=== PATIENT | female | born 1990 | race Caucasian/White ===

== ENCOUNTER 2017-10-16 08:28 | Emergency (ER) | payer MEDICAID ==
[~2017-10-16] VITALS: Ht 162.6 cm; Wt 70.0 kg
[~2017-10-16 08:28] MED LIST: FIORICET PO; IBUP-1542 PO; NITR-58 PO
[2017-10-16 08:31] VITALS: Ht 162.6 cm; Wt 70.0 kg
[2017-10-16] MEDS ORDERED: KETOROLAC 60 MG INJ IM STA (08:48)
[2017-10-16] MEDS ORDERED: PROCHLORPERAZINE 10 MG INJ IM ONE (09:00)
[2017-10-16] MEDS ORDERED: DIPHENHYDRAMINE 50 MG INJ IM ONE (09:00)
[2017-10-16] MEDS ORDERED: PROCHLORPERAZINE 10 MG TAB PO ONE (09:30)
[2017-10-16] MEDS ORDERED: ASPI1TAB31 PO (10:08)
[2017-10-16] MEDS ORDERED: PROC10TA10 PO (10:09)
--- NOTE | 2017-10-16 10:21 | ERD ---
ER Documentation Chief Complaint Chief Complaint pt bib family with c/o headache and vomiting for a few days HPI 27-year-old female with history of migraine is complaining of headache 2 days. Patient usually take Excedrin at home for migraine, states that it has not worked. Patient is several times. States that she has photophobia and phonophobia. Denies fever or chills. Denies abdominal pain. Denies neck pain. Denies vision changes. Denies weakness or numbness in the extremities. ROS All systems reviewed and are negative except as per history of present illness. Medications Home Meds Active Scripts Prochlorperazine* (Prochlorperazine*) 10 Mg Tablet, 10 MG PO Q6 Y for NAUSEA AND /OR VOMITING, #10 TAB Prov:FIDELINA FERNANDEZ QUALITY CONTROL MICROBIOLOGIST 10/16/17 Aspirin/Acetaminophen/Caffeine (Excedrin Migraine Caplet) 1 Each Tablet, 1 EACH PO Q6 Y for HEADACHE, #30 TAB Prov:FIDELINA FERNANDEZ QUALITY CONTROL MICROBIOLOGIST 10/16/17 Ibuprofen* (Motrin*) 600 Mg Tab, 600 MG PO Q6, #30 TAB Prov:CLAU MASTERS PA-C 07/12/16 Acetamin/Butalbital/Caffeine* (Fioricet*) 1 Tab Tab, 1 TAB PO Q4H Y for PAIN LEVEL 1-5, #10 TAB Prov:CLAU MASTERS PA-C 07/12/16 Nitrofurantoin Monohyd Macrocr* (Macrobid*) 100 Mg Capsr, 100 MG PO BID, #14 CAP Prov:GAY MERINO PA-C 03/11/16 Acetamin/Butalbital/Caffeine* (Fioricet*) 1 Tab Tab, 1 TAB PO Q4H Y for PAIN LEVEL 1-5, #20 TAB Prov:GAY MERINO PA-C 03/11/16 Allergies Allergies: Coded Allergies: No Known Allergy (Unverified , 10/16/17) PMhx/Soc History of Surgery: No Anesthesia Reaction: No Hx Neurological Disorder: No Hx Respiratory Disorders: No Hx Cardiac Disorders: No Hx Psychiatric Problems: No Hx Miscellaneous Medical Probl: Yes (gallstones, MIGRAINES) Hx Alcohol Use: No Hx Substance Use: No Hx Tobacco Use: No Smoking Status: Never smoker Physical Exam Vitals Vital Signs Date Time Temp Pulse Resp B/P Pulse Ox O2 Delivery O2 Flow Rate FiO2 10/16/17 08:31 98.6 62 16 106/69 100 Physical Exam General: Well-developed, well-nourished, conscious and coherent, in no distress Skin: Warm and dry without rash, good texture and turgor Head: Normocephalic without evidence of trauma Eyes: Sclera and conjunctivae normal; pupils equal, round, and reactive to light; extraocular movements are intact Neck: Supple without meningismus or adenopathy. Carotids are equal. Trachea midline. No bruits or JVD Chest: Normal AP diameter. Good expansion without retractions. Nontender. Lungs are clear to auscultate bilaterally with good tidal volume Heart: Regular rate and rhythm. No murmur, rub, or gallops heard Abdomen: Soft and nontender without masses, guarding, or rebound. Bowel sounds are active. No hepatosplenomegaly Extremities: Full range of motion. Good strength bilaterally. No clubbing, cyanosis, or edema. Peripheral pulses are intact. Sensation intact Neuro: Alert and oriented 4, GCS 15. Cranial nerves grossly intact. Motor and sensory exams nonfocal. Moves all extremities. Speech clear. Gait normal Results 24 hrs Current Medications Medications (Trade) Dose Ordered Sig/Paras Route PRN Reason Start Time Stop Time Status Last Admin Dose Admin Ketorolac Tromethamine (Toradol) 60 mg ONCE STAT IM 10/16/17 08:48 10/16/17 08:50 DC 10/16/17 09:16 Diphenhydramine HCl (Benadryl) 50 mg ONCE ONCE IM 10/16/17 09:00 10/16/17 09:01 DC 10/16/17 09:15 Prochlorperazine (Compazine Inj) 10 mg ONCE ONCE IM 10/16/17 09:00 10/16/17 09:09 DC Prochlorperazine (Compazine) 10 mg ONCE ONCE PO 10/16/17 09:30 10/16/17 09:31 DC 10/16/17 09:26 Procedures/MDM Well-appearing 27-year-old female with history of migraines present ED with migraine headache 2 days. She is given Toradol IM, Benadryl IM, and Compazine p.o. in the ED. After medication patient reports improvement headache. Differentials include but not limited to migraine, cluster headache, tension headache, sinus or dental infection, TMJ syndrome, pseudotumor cerebri, meningitis, encephalitis, giant cell arteritis, glaucoma, subarachnoid hemorrhage, subdural or epidural hematoma, intracranial bleeding or tumor. Patient appears well, stable for discharge and outpatient management. Medical decision making shared with patient and family. Education provided to patient and family. Patient and family expressed understanding of the plan. Medications on discharge: Excedrin migraine, Compazine. Follow-up: Primary care provider in 2-3 days or return to ED if worse. Disclaimer: Inadvertent spelling and grammatical errors are likely due to EHR/ dictation software use and do not reflect on the overall quality of patient care. Also, please note that the electronic time recorded on this note does not necessarily reflect the actual time of the patient encounter. Departure Diagnosis: Primary Impression: Migraine Migraine type: unspecified Status migrainosus presence: without status migrainosus Intractability: not intractable Qualified Code: G43.909 - Migraine without status migrainosus, not intractable, unspecified migraine type Condition: Stable Patient Instructions: Self-Care for Headaches, Preventing Migraine Headaches: Triggers, Preventing Migraine Headaches: Medications and Lifestyle Changes [facility]: [facility] Usted se anderson hecho un examen mdico de control que le indica que no est en antonia condicin que requiera tratamiento urgente en el Departamento de Emergencia. Un estudio ms profundo y el tratamiento de walton condicin pueden esperar sin ningn riesgo hasta que usted sea atendida/o en el consultorio de walton mdico o antonia cl sheba. Es responsabilidad suya arreglar antonia sheba para el seguimiento del vin. MANEJO DE CONDICIONES NO URGENTES EN EL FUTURO 1) Si usted tiene un mdico de atencin primaria: Usted debera llamar a [place]ton mdico de atencin primaria antes de venir al departamento de emergencia. Despus de las horas de consultorio, wal[place] doctor o walton asociado/a est disponible por telfono. El mdico o enfermero de marco en el servicio telefnico puede asesorarle por kinsey medio para atender el problema, o vin contrario se puede programar antonia sheba. 2) Si usted no tiene un mdico de atencin primaria: Llame al mdico o clnica de referencia que aparece abajo rajwinder las horas de consultorio para hacer antonia sheba para que le vean. CLINICAS: [facility] [phone] [facility] [phone] [facility] [phone] [place] [id number] [phone] [facility] [phone] [address] [facility]. [phone] [address] [facility]. [facility] () Usted se anderson hecho un examen mdico de control que le indica que no est en antonia condicin que requiera tratamiento urgente en el Departamento de Emergencia. Un estudio ms profundo y el tratamiento de walton condicin pueden esperar sin ningn riesgo hasta que usted sea atendida/o en el consultorio de walton mdico o antonia cl sheba. Es responsabilidad suya arreglar antonia sheba para el seguimiento del vin. MANEJO DE CONDICIONES NO URGENTES EN EL FUTURO 1) Si usted tiene un mdico de atencin primaria: Usted debera llamar a [place]ton mdico de atencin primaria antes de venir al departamento de emergencia. Despus de las horas de consultorio, walton doctor o walton asociado/a est disponible por telfono. El mdico o enfermero de marco en el servicio telefnico puede asesorarle por kinsey medio para atender el problema, o vin contrario se puede programar antonia sheba. 2) Si usted no tiene un mdico de atencin primaria: Llame al mdico o condado institucions de referencia que aparece abajo rajwinder las horas de consultorio para hacer antonia sheba para que le vean. SI USTED NO PUEDE PAGAR PARA JAY UN MEDICO puede ir a: [facility] [address] [place] [address] [facility] [address] [place] [address] [facility] [address] [place] [address] [facility] [place] [address] [place], [place] [id number] Additional Instructions: Llame al doctor MAANA y hussein antonia SHEBA PARA DENTRO DE 2-3 HOWELL.Dgale a la secretaria que nosotros le instruimos hacer esta sheba.Avise o llame si walton condicin se empeora antes de la sheba. Regresa aqui si peor o no mejor. FIDELINA FERNANDEZ. LARRY Oct 16, 2017 10:21
== END 2017-10-16 10:47 | disposition home or self-care (01) ==
LOC: FTE 08:28
DX: G43.909 Migraine, unspecified, not intractable, without status migrainosus (principal); Z79.82 Long term (current) use of aspirin
CPT/HCPCS: 96372; J1200; J1885; Z7502; Z7610

== ENCOUNTER 2017-10-31 11:39 | Emergency (ER) | payer MEDICAID ==
[~2017-10-31] VITALS: Ht 160 cm; Wt 68.1 kg
[~2017-10-31 11:39] MED LIST changes: +ASPI1TAB31 PO; +PROC10TA10 PO
[2017-10-31 11:53] VITALS: Ht 160 cm; Wt 68.1 kg
[2017-10-31] MEDS ORDERED: KETOROLAC 30 MG INJ IV STA (12:12)
[2017-10-31] MEDS ORDERED: DIPHENHYDRAMINE 50 MG INJ IV ONE (12:30)
[2017-10-31] MEDS ORDERED: SOD CHLORIDE 0.9% 1,000 ML IV ONE (12:30)
[2017-10-31] MEDS ORDERED: METOCLOPRAMIDE 10 MG INJ IV ONE (12:30)
--- NOTE | 2017-10-31 12:35 | ERD ---
ER Documentation Chief Complaint Chief Complaint Pt with migraine WRIGHT , Vomiting , dizziness X 2 days. HPI 27-year-old female presents with the chief complaint of headache. Similar symptoms in the past. States headache is 9 out of 10. Describes photophobia. Denies fever, vomiting, worst headache of life, thunderclap headache, meningismus, temporal pain, eye pain, aura, change in vision, or new medications. Patient is otherwise describes no other social manifestations. ROS All systems reviewed and are negative except as per history of present illness. Medications Home Meds Active Scripts Prochlorperazine* (Prochlorperazine*) 10 Mg Tablet, 10 MG PO Q6 Y for NAUSEA AND /OR VOMITING, #10 TAB Prov:FIDELINA FERNANDEZ HEMATOLOGY SPECIALIST 10/16/17 Aspirin/Acetaminophen/Caffeine (Excedrin Migraine Caplet) 1 Each Tablet, 1 EACH PO Q6 Y for HEADACHE, #30 TAB Prov:FIDELINA FERNANDEZ. HEMATOLOGY SPECIALIST 10/16/17 Ibuprofen* (Motrin*) 600 Mg Tab, 600 MG PO Q6, #30 TAB Prov:CLAU MASTERS PA-C 07/12/16 Acetamin/Butalbital/Caffeine* (Fioricet*) 1 Tab Tab, 1 TAB PO Q4H Y for PAIN LEVEL 1-5, #10 TAB Prov:CLAU MASTERS PA-C 07/12/16 Nitrofurantoin Monohyd Macrocr* (Macrobid*) 100 Mg Capsr, 100 MG PO BID, #14 CAP Prov:GAY MERINO PA-C 03/11/16 Acetamin/Butalbital/Caffeine* (Fioricet*) 1 Tab Tab, 1 TAB PO Q4H Y for PAIN LEVEL 1-5, #20 TAB Prov:GAY MERINO PA-C 03/11/16 Allergies Allergies: Coded Allergies: No Known Allergy (Unverified , 10/16/17) PMhx/Soc History of Surgery: No Anesthesia Reaction: No Hx Neurological Disorder: No Hx Respiratory Disorders: No Hx Cardiac Disorders: No Hx Psychiatric Problems: No Hx Miscellaneous Medical Probl: Yes (gallstones, MIGRAINES) Hx Alcohol Use: No Hx Substance Use: No Hx Tobacco Use: No Physical Exam Vitals Vital Signs Date Time Temp Pulse Resp B/P Pulse Ox O2 Delivery O2 Flow Rate FiO2 10/31/17 11:53 97.7 68 18 106/65 100 Physical Exam Headache Physical Const: Healthy-appearing. Well-nourished. Well-developed. No acute distress. Head: Normocephalic, Atraumatic. Eyes: Non-injected; No discharge or foreign body. Ophthalmoscope exam unremarkable. EOMI and JAY bilaterally. No nystagmus. Neur: Awake, alert and oriented x3. Neurovascularly intact bilaterally. Psych: Normal Mood and Affect. Ears: Normal External Ears, EACs clear, TM normal bilaterally without erythema. Nose: Normal external nose; no discharge, septal deviation, or sinus tenderness. Oral: No oral edema visualized. Mucous membranes moist and pink. Neck: No cervical lymphadenopathy, masses or goiter palpated. Trachea midline. Full range of motion. Supple ~ No meningismus. Negative kernings and brudnizkis signs. Pulm: Good air movement in upper and lower respiratory tracts. No dyspnea, stridor, tripoding or drooling. Clear to auscultation bilaterally. Cardio: Regular rate and rhythm; No murmurs, gallops or rubs auscultated. No JVD grossly observed. Radial and posterior tibial pulses 2+ bilaterally. No cyanosis. Capillary refill less than 2 seconds. MS: Normal motor strength, normal tone with gross examination. Back: No midline, flank or CVA tenderness. Ext: No edema or palpable cord. Normal movement of all extremities grossly observed. Results 24 hrs Current Medications Medications (Trade) Dose Ordered Sig/Paras Route PRN Reason Start Time Stop Time Status Last Admin Dose Admin Ketorolac Tromethamine 30 mg 30 mg ONCE STAT IV 10/31/17 12:12 10/31/17 12:14 DC 10/31/17 12:32 Sodium Chloride (NS) 1,000 ml @ 1,000 mls/hr Q1H ONCE IV 10/31/17 12:30 10/31/17 13:29 10/31/17 12:32 Diphenhydramine HCl (Benadryl) 50 mg ONCE ONCE IV 10/31/17 12:30 10/31/17 12:31 DC 10/31/17 12:32 Metoclopramide HCl (Reglan) 10 mg ONCE ONCE IV 10/31/17 12:30 10/31/17 12:31 DC 10/31/17 12:32 Procedures/MDM Patient was worked up and evaluated for headache as described in the history and physical examination. ED treatment consisted of 1 L normal saline, 50 mg Benadryl IV, 10 mg of Reglan IV, and Toradol 30 mg IV. There are no red flags to support brain CT evaluation. The current most likely diagnosis is tension- type headache versus migraine. Patient will be discharged with continued over- the-counter medications. At this time, I have little suspicion for subarachnoid hemorrhage or other intracranial bleeds, meningitis, temporal arteritis, glaucoma, hypertensive urgency/emergency, cerebral ischemia, arterial dissection, brain abscess/tumor, pain secondary to trauma, septicemia, or other intracranial bleeds. I have spoke with the patient regarding their condition and future management. They have verbally responded that they understand their status and treatment plan. The patients vitals are stable, and their current condition is appropriate for discharge. The patient will be given discharge instructions with return precautions. Departure Diagnosis: Primary Impression: Headache Headache type: unspecified Headache chronicity pattern: unspecified pattern Intractability: not intractable Qualified Code: R51 - Nonintractable headache, unspecified chronicity pattern, unspecified headache type Condition: Stable Additional Instructions: Follow up with your PCP within the next 1-3 days for a more thorough evaluation and a possible referral to a specialist. Return the the emergency department immediately if symptoms worsen or change. If you have any questions regarding medications, ask your pharmacist or us before you leave. If any adverse reactions occur while taking your medications, discontinue the treatment and return to the emergency department immediately. Take your medications as directed, and complete the entire course of treatment. ROOPA MILTON PA-C Oct 31, 2017 12:35
== END 2017-10-31 14:35 | disposition home or self-care (01) ==
LOC: FTE 11:39
DX: R51 Headache (principal); Z79.82 Long term (current) use of aspirin
CPT/HCPCS: 96374; 96375; J1200; J1885; J2765; J7030; Z7502

== ENCOUNTER 2017-12-13 05:27 | Emergency (ER) | END 2017-12-13 07:41 | disposition home or self-care (01) ==

== ENCOUNTER 2018-02-20 15:30 | Emergency (ER) | END 2018-02-20 18:49 | disposition home or self-care (01) ==